=== PATIENT | female | born 1985 | race Caucasian/White ===

== ENCOUNTER 2016-09-05 21:45 | Emergency (ER) | payer OTHER | END 2016-09-05 23:40 | disposition home or self-care (01) | LOC: ER1 21:45 | DX: L50.0 Allergic urticaria (principal); T78.49XA Other allergy, initial encounter; X58.XXXA Exposure to other specified factors, initial encounter; Z88.0 Allergy status to penicillin; Z88.1 Allergy status to other antibiotic agents | CPT/HCPCS: 99282; J8540 ==

== ENCOUNTER 2020-10-28 14:20 | Emergency (ER) | payer OTHER ==
[~2020-10-28 14:20] MED LIST: CEFUROXIME500 MG PO; CLEOCIN HCL300 MG PO; IBUPROFEN800 MG PO; ZOFRAN4 MG PO
== END 2020-10-28 14:50 | disposition home or self-care (01) ==
LOC: ER1 14:20
DX: Z53.21 Procedure and treatment not carried out due to patient leaving prior to being seen by health care provider (principal)

== ENCOUNTER 2020-12-01 19:12 | Emergency (ER) | payer OTHER | END 2020-12-01 20:48 | disposition left against medical advice (07) | LOC: ER1 19:12 | DX: Z53.21 Procedure and treatment not carried out due to patient leaving prior to being seen by health care provider (principal) ==